=== PATIENT | female | born 1965 | race African-American/Black ===

== ENCOUNTER 2019-07-25 11:11 | Emergency (ER) | payer OTHER ==
[~2019-07-25] VITALS: Ht 167.6 cm; Wt 90.3 kg
[2019-07-25 11:15] VITALS: Ht 167.6 cm; Wt 90.3 kg
[2019-07-25 12:27] LABS: PLATELET COUNT 252 x10^3mcL (130-400)
[2019-07-25 12:28] LABS: BASOPHIL % 0.4 % (0-2)
[2019-07-25 13:57] LABS: ALBUMIN 4.5 g/dL (3.4-5.0); BILIRUBIN TOTAL 0.6 mg/dL (0.20-1.00); CALCIUM 9.9 mg/dL (8.5-10.1); CREATININE SERUM 1.1 mg/dL (0.6-1.0); POTASSIUM SERUM 3.6 mmol/L (3.5-5.1); TOTAL PROTEIN, SERUM 8.7 g/dL (6.4-8.2)
[2019-07-25 17:11] VITALS: BP 115/76
== END 2019-07-25 17:12 | disposition home or self-care (01) ==
LOC: ED 11:11
PROVIDERS: Emergency Medicine
DX: R07.89 Other chest pain (principal); R11.0 Nausea; R20.2 Paresthesia of skin
CPT/HCPCS: 82962; 83880; J1885; J2270; J2405; Q0092; Q9967